=== PATIENT | male | born 1970 | race Caucasian/White ===

== ENCOUNTER 2016-09-05 15:38 | Inpatient (IN) | payer MEDICAID ==
[2016-09-05 15:50] VITALS: BMI 30.9
[2016-09-05] MEDS ORDERED: ONDANSETRON HCL 4 MG/2 ML VIAL IV ONE ×2 (15:54→15:58)
[2016-09-05] MEDS ORDERED: ASPIRIN (CHEWABLE) 81 MG TAB PO ONE (15:54)
[2016-09-05] MEDS ORDERED: ACETAMINOPHEN 325 MG/TAB TABLET PO ONE (15:57)
--- NOTE | 2016-09-05 15:57 | EDPRACDOC ---
- General Information Chief Complaint: Chest Pain Stated Complaint: RAPID HR WITH CP Information Source: Patient Mode of Arrival: Car Home Medications: Home Medications Alprazolam [Xanax] 1 mg PO BID 01/28/15 Hydrocodone/Acetaminophen [Hydrocodon-Acetaminophn 10-325] 1 tab PO TID Omeprazole 40 mg PO DAILY 09/05/16 Allergies/Adverse Reactions: Allergies Allergy/AdvReac Type Severity Reaction Status Date / Time Penicillins Allergy Severe Hives* Verified 09/05/16 15:40 diphenhydramine HCl Allergy Unknown UNKNOWN Verified 09/05/16 15:40 [From Benadryl] - History of Present Illness Onset: one hour ago HPI: PT REPORTS HR INCREASED FROM 52 TO 112 WITHIN AN HOUR. BP ELEVATED 230/130 TODAY, USUALLY SYSTOLIC TRIPLE DIGITS. HEADACHE SEVERE, NAUSEA. ABOUT AN HOUR AGO HAD CHEST PAIN THAT DEVELOPED. STRESS TEST WITHIN THE PAST YEAR. 3 YEARS AGO HEART CATH. NO H/O WA. ED Past Medical History - History Reviewed Yes Nurses notes reviewed and agree except as marked - Patient Medical History Neurological History: Reports: Cerebrovascular Accident (several TIA) Cardiac History: Reports: Hypertension Psychological History: Reports: Anxiety. Denies: Depression Systemic History: Denies: Cancer Additional Past Medical History: CHRONIC BACK PAIN - Family Medical History Reports: Cancer, Stroke, Cardiac Disorders. Denies: Hypertension, Diabetes - Social Medical History Smoking Status: Never smoker EDM Review of Systems - Review of Systems ROS Negative Except as Marked: Yes All systems reviewed and were negative except as marked - Physical Exam Constitutional: Alert (Awake), No apparent distress Oriented to: Time, Person, Place Last recorded Vital Signs: Last Vital Signs Temp 98.4 F 09/05/16 15:40 Pulse 108 09/05/16 15:40 Resp 20 09/05/16 15:40 BP 174/123 H 09/05/16 15:40 Pulse Ox 99 09/05/16 15:40 Oxygen Pulse Oxygen Saturation 99 O2 Device Room Air Oxygen Flow Rate Fraction of Inspired Oxygen ( FIO2) - HEENT Head: Normal ( normocephalic) Eye Exam: Normal (PERRL, EOMI, Sclera white) Oropharynx: Normal (Pharynx:Moist without exudate,Gums-no swelling) Nose: No Symptoms Reported (septum midline) Neck: Normal (FROM, trachea at midline) - Respiratory/Cardiovascular Respiratory: Normal - CTA (BBS clear to auscultation without adventitious sounds ) Cardiovascular: Normal (RRR without murmur, gallop or rub) - GI Auscultation: Normal (NABS) Palpation: Normal (Soft,No rebound or guarding, non distended) Tenderness: Non tender Deleon's Sign: Negative - Musculoskeletal Back: Normal (Non-Tender) Extremities: Normal (Normal tone, Pulses 2+ No cyanosis or edema, FROM) - Integumentary Skin: Normal, Warm, Dry Lymphatics: Normal (no adenopathy) - Neurologic Memory Impaired: Normal Motor Function: Normal (Normal tone, Pulses 2+ No cyanosis or edema, FROM) Cranial Nerve: Normal (CN II-X11 intact sensation, strength 5/5) Cerebellar: Normal Mood Description: Normal Perception: Normal - Action ASA given in the ED: Yes - Results 09/05/16 15:45 09/05/16 15:45 - EKG EKG #1 EKG Time: 15:42 -: Yes EKG interpreted by me Rate: bpm: 92 Couch: Normal Rhythm: NSR ST: Lat, Ischemia Comments: ABNORMAL EKG ; Comparison: 07/24/15 (NEW LATEAL CHANGES) - Departure Yes I personally saw and evaluated the patient. Disposition: Admit IP To This Hospital Condition: Stable Final Diagnosis: Hypertensive urgency, EKG abnormalities Chest pain Qualifiers: Chest pain type: unspecified Qualified Code(s): R07.9 - Chest pain, unspecified Headache Qualifiers: Headache type: unspecified Headache chronicity pattern: acute headache Decision to Admit Time: 18:11 Decision to admit date: 09/05/16 Decision to admit: from ED - Physician Consulted Hospitalist Time Called: 18:11 Provider Called: Mateus Sinclair Time Lead Pharmacy Technician Returned Call: 18:11
[2016-09-05] MEDS ORDERED: LABETALOL 20 MG/4 ML SYRINGE IV ONE (15:58)
[2016-09-05 16:04] LABS: AUTOMATED BASOPHIL 0.6 % (0-2); AUTOMATED EOSINOPHIL 0.4 % (0-5); AUTOMATED LYMPH 15.7 % (17-44); AUTOMATED MONOCYTE 7.2 % (3-10); AUTOMATED NEUTROPHIL 76.1 % (45-76); MPV 8.6 fL (7.4-10.4)
[2016-09-05 16:17] LABS: BLOOD UREA NITROGEN 21 MG/DL (9-20); CALCIUM 10.4 MG/DL (8.4-10.2); CALCULATED OSMOLALITY 277 MOs/Kg (270-290); CHLORIDE 100 mEq/L (98-107); GLUCOSE 110 MG/DL (70-99); SODIUM LEVEL 142 mEq/L (137-146)
[2016-09-05 16:25] LABS: PARTIAL THROMB. TIME 24.6 SEC (22-35); PT-INR 1.1
--- NOTE | 2016-09-05 16:29 | DIRPT ---
CLINICAL DATA: Acute onset headache several hours ago. Hypertension. Previous TIA. EXAM: CT HEAD WITHOUT CONTRAST TECHNIQUE: Contiguous axial images were obtained from the base of the skull through the vertex without intravenous contrast. COMPARISON: 11/24/2015 FINDINGS: Brain: No evidence of acute infarction, hemorrhage, extra-axial collection, ventriculomegaly, or mass effect. Vascular: No hyperdense vessel or unexpected calcification. Skull: Negative for fracture or focal lesion. Sinuses/Orbits: No acute findings. Other: None. IMPRESSION: Negative noncontrast head CT. Electronically Signed By: Daryl Soto M.D. On: 09/05/2016 16:26
--- NOTE | 2016-09-05 16:58 | DIRPT ---
CLINICAL DATA: Chest pain, elevated blood pressure EXAM: CHEST 2 VIEW COMPARISON: 11/24/2015 FINDINGS: Cardiomediastinal silhouette is stable. No acute infiltrate or pleural effusion. No pulmonary edema. Bony thorax is unremarkable. IMPRESSION: No active cardiopulmonary disease. Electronically Signed By: Chuck Andrews M.D. On: 09/05/2016 16:56
[2016-09-05] MEDS ORDERED: MORPHINE 4 MG/ML INJECTION IV ONE (17:05)
[2016-09-05] MEDS ORDERED: METOCLOPRAMIDE 10 MG/2 ML VIAL IV ONE (17:05)
[2016-09-05] MEDS ORDERED: IBUPROFEN 600 MG TAB PO ONE (17:20)
[2016-09-05] MEDS ORDERED: Enoxaparin 1 mg per kg per dose SQ ONE (18:11)
[2016-09-05] MEDS ORDERED: NITROGLYCERINE 2 % OINTMENT PACK TOP ONE (18:12)
[2016-09-05] MEDS ORDERED: ENOXAPARIN SODIUM SQ ONE ×2 (18:30)
--- NOTE | 2016-09-05 19:13 | HISTPHYS ---
- Chief Complaint chest pain, headache - History of Present Illness PRIMARY CARE PROVIDER: Dr. Goodson SEQUENCING MACHINE OPERATOR: Dr. Colbert NEUROLOGIST: Dr. Sevilla and Tiffany Barton HPI: The patient is a 45 yo man with hypertension, hyperlipidemia, history of TIAs, who was sent by Dr. Goodson for pulse 112 and blood pressure 188/168, chest pain, and headaches. Regarding the chest pain: Onset: Intermittent but more frequent chest pain with exertion over several months. New worsening chest pain with one severe episode last week and also today. Duration: intermittent. Location: substernal. Radiation: to left shoulder. Character: Is a heaviness/pressure sensation. 7-8/10 at times. Feels like a "hit and miss engine" - like it is missing beats or going very fast. He rapidly went from 50 bpm to 112 bpm and was sitting on his couch the entire time. Alleviated by: Resting after exertion. Exacerbated by: Chest heaviness worsens with exertion. Associated Symptoms: Nausea with the chest pain. Diaphoresis. Has been waking up at night in a "pool of sweat". Shortness of breath. Palpitations. Elevated blood pressure. Treatments: none at home except usual medications. Regarding headaches: Onset: Has had headaches with worsening frequency over the year. Had a severe headache that started 2 days ago. Duration: intermittent. Usually happens when his blood pressure is high. Location: Frontal and bilateral. Includes both temples. Radiation: none. Character: 8/10. Pressure. Alleviated by: Lower blood pressure. Exacerbated by: Nothing. Associated Symptoms: Photophobia. Phonophobia. No local weakness or numbness. No confusion, slurred speech, or drooling. No dizziness. No visual changes. Treatments: none at home except usual medications. - Medical History Cardiac History: Reports: Hypertension, Cardiac Catheterization (Possibly 2 stents. [place].), Stress Test (2013 normal), Hypercholesterolemia, Other ( Murmur since childhood.) GI/ History: Reports: Gastroesophageal Reflux Musculoskeletal History: Reports: Arthritis (Chronic back pain.) Systemic History: Denies: Cancer Neurological History: Reports: Migraine, Other (Had episodes of memory problems , resolved.). Denies: Cerebrovascular Accident (several TIAs: temporary weakness and confusion.) Psychological History: Reports: Anxiety. Denies: Depression Had EGD and gall bladder testing approx 2012. Tried to do a sleep study in past but he could not get to sleep so it was not valid. ECHOCARDIOGRAM 2012: EF 60%. Trace mitral regurgitation. Pulmonary artery pressure 37 mmHg. - Surgical History Reports: Cardiac Catheterization (possibly 2 stents), Other (Tympanostomy tubes as a child) - Medictions/Allergies Allergies Penicillins Allergy (Severe, Verified 09/05/16 15:40) Hives* diphenhydramine HCl [From Benadryl] Allergy (Unknown, Verified 09/05/16 15:40) UNKNOWN Current Medication List: Reviewed Home Medications Alprazolam [Xanax] 1 mg PO BID 01/28/15 Hydrocodone/Acetaminophen [Hydrocodon-Acetaminophn 10-325] 1 tab PO TID Omeprazole 40 mg PO DAILY 09/05/16 - Family History Reports: Cancer, Stroke, Cardiac Disorders. Denies: Hypertension, Diabetes - Social History Lives: With Family Smoking Status: Light tobacco smoker (less than 5/day) (Quit cigarettes 2007. Smoked 2.5 to 3 ppd previously. Currently 1 cigar per month. 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 - Review of Systems GENERAL: No Fever, chills. Positive for diaphoresis. Positive for fatigue/ malaise. HEENT: No ear pain or discharge. No nasal discharge or bleeding. No throat pain or swelling. No eye pain or eye redness. RESPIRATORY: No cough, wheezing. Positive for shortness of breath. CARDIOVASCULAR: Has chest pain and palpitations. GI: Nausea. No new abdominal pain but has chronic intermittent pain. No vomiting , diarrhea, constipation, or bloody stool. NEUROLOGICAL: Headache. No focal weakness. INTEGUMENT: no rashes, itching, or lesions. LYMPHATIC SYSTEM: no lymph node swelling or pain. MUSCULOSKELETAL: no new pain or joint swelling. GENITOURINARY: No dysuria or hematuria. ENDOCRINE: No polyuria or polydipsia. HEME: No chronic anemia, bleeding, or easy bruising. - Physical Exam Vital Signs: Initial Vitals Temperature 98.4 F 09/05/16 15:40 Pulse Rate 108 09/05/16 15:40 Respiratory Rate 20 09/05/16 15:40 Blood Pressure 174/123 H 01/11/17 15:40 Pulse Oxygen Saturation 99 09/05/16 15:40 Vital Signs - 24 hr 09/05/16 09/05/16 09/05/16 15:40 15:57 16:26 Temperature 98.4 F Pulse Rate 108 104 76 Respiratory 20 20 20 Rate Blood Pressure 174/123 H 178/130 H 155/116 H Pulse Oxygen 99 96 94 Saturation 09/05/16 09/05/16 09/05/16 17:06 17:15 17:21 Temperature Pulse Rate 72 75 66 Respiratory 22 19 Rate Blood Pressure 194/106 H 159/100 158/112 H Pulse Oxygen 97 95 96 Saturation 09/05/16 18:16 Temperature Pulse Rate 68 Respiratory Rate Blood Pressure 131/97 Pulse Oxygen 95 Saturation Weight: 106.6 kg Height: 6 feet 1 inch BMI: 31 - Other Exam Other Exam Findings: GENERAL: Ill-appearing, well nourished, in acute distress. Worsening distress when the overhead light was turned on. HEENT: Normocephalic, atraumatic; pupils equal and round. Nares patent, without discharge or bleeding. No oropharyngeal lesions or erythema. Mucous membranes are dry. NECK: is supple, no masses, trachea midline. Large neck circumference. RESPIRATORY: Clear to auscultation bilaterally. Chest wall movements are symmetric. No use of accessory muscles to breathe. No wheezing, rales, rhonchi. CARDIOVASCULAR: Normal S1, S2. Murmur 2/6 systolic at the right upper sternal border. No rubs, or gallops. PMI non-displaced. Carotids: no carotid bruits. No bradycardia or tachycardia. DP pulses 2+ bilaterally. GI: soft, nontender, non-distended, normal active bowel sounds. No hepatosplenomegaly. INTEGUMENT: Clean, dry, and intact. No rashes. No lesions. MUSCULOSKELETAL: Moving all extremities. No cyanosis. No clubbing. Edema: none bilaterally. NEUROLOGICAL: Cranial nerves 2-12 grossly intact. Motor 5/5 throughout. Reflexes : 2+ bilaterally. Babinski: toes downgoing bilaterally. Intact Finger to nose. Sensory grossly intact to light touch. Intact rapid alternating movements bilaterally. No pronator drift. PSYCHIATRIC: Fully oriented. Normal and appropriate affect. LYMPHATIC: No cervical lymphadenopathy. No supraclavicular lymphadenopathy. - Lab Results Laboratory Results - last 24 hr 09/05/16 09/05/16 09/05/16 15:45 15:45 15:45 WBC 11.3 H RBC 5.98 Hgb 17.5 Hct 51.8 MCV 87 MCH 29.4 MCHC 33.9 RDW 13.8 Plt Count 241 MPV 8.6 Neut % (Auto) 76.1 H Lymph % (Auto) 15.7 L [place] % (Auto) 7.2 Eos % (Auto) 0.4 Baso % (Auto) 0.6 Absolute Neuts (auto) 8.59 H Absolute Lymphs (auto) 1.70 PT 11.2 INR 1.1 APTT 24.6 Sodium 142 Potassium 4.5 Chloride 100 Carbon Dioxide 28 Anion Gap 19 H BUN 21 H Creatinine 1.10 Estimated GFR (MDRD) > 60 Glucose 110 H Calculated Osmolality 277 Calcium 10.4 H Total Bilirubin 1.1 AST 26 ALT 38 Alkaline Phosphatase 73 Troponin I < 0.01 Luf-G-Ultpohogkty Pept 38 Total Protein 9.0 H Albumin 5.1 H Lipase 09/05/16 09/05/16 15:45 18:25 WBC RBC Hgb Hct MCV MCH MCHC RDW Plt Count MPV Neut % (Auto) Lymph % (Auto) [place] % (Auto) Eos % (Auto) Baso % (Auto) Absolute Neuts (auto) Absolute Lymphs (auto) PT INR APTT Sodium Potassium Chloride Carbon Dioxide Anion Gap BUN Creatinine Estimated GFR (MDRD) Glucose Calculated Osmolality Calcium Total Bilirubin AST ALT Alkaline Phosphatase Troponin I < 0.01 Xzq-Y-Ciqptbbzouw Pept Total Protein Albumin Lipase 40 - Diagnostic Findings EK bpm. Normal sinus rhythm. ST and T wave abnormality. Slight ST depression with T wave inversion in V5 and V6. ST depression in I. Flat T waves in V2. Reviewed EKG personally. Chest x-ray, viewed personally: EXAM: CHEST 2 VIEW COMPARISON: 11/24/2015 FINDINGS: Cardiomediastinal silhouette is stable. No acute infiltrate or pleural effusion. No pulmonary edema. Bony thorax is unremarkable. IMPRESSION: No active cardiopulmonary disease. Head CT: EXAM: CT HEAD WITHOUT CONTRAST TECHNIQUE: Contiguous axial images were obtained from the base of the skull through the vertex without intravenous contrast. COMPARISON: 11/24/2015 FINDINGS: Brain: No evidence of acute infarction, hemorrhage, extra-axial collection, ventriculomegaly, or mass effect. Vascular: No hyperdense vessel or unexpected calcification. Skull: Negative for fracture or focal lesion. Sinuses/Orbits: No acute findings. Other: None. IMPRESSION: Negative noncontrast head CT. - Assessment (1) Acute coronary syndrome I24.9 - ACUTE ISCHEMIC HEART DISEASE, UNSPECIFIED Acute Present on Admission: Yes ST depressions on EKG. Plan: Obtain cardiac enzymes x 3. Place patient on telemetry. Give patient oxygen, aspirin. Give nitroglycerin, and morphine as needed for chest pain. Give statin. Stress test has been ordered for the morning. Patient has been advised, if the stress test is negative, to follow up with the primary care provider for evaluation of other potential causes of the chest pain. Lovenox 1 milligram/kilogram q.12 hours Beta-cedric JUDY-inhibitor (2) Hypertensive urgency I16.0 - HYPERTENSIVE URGENCY Acute Present on Admission: Yes With associated chest pain and headache. Plan: Add beta cedric, JUDY inhibitor. Nitroglycerin. (3) Headache R51 - HEADACHE Acute Present on Admission: Yes Qualifiers: Headache type: unspecified Headache chronicity pattern: acute headache Concerning that it is related to his elevated blood pressure. Also has features of a migraine. Plan: Treat blood pressure. Outpatient follow up with neurology is already scheduled: suggested patient discuss restarting migraine prevention medication. IV pain medication as needed for now. (4) Tachycardia R00.0 - TACHYCARDIA, UNSPECIFIED Acute Present on Admission: Yes Frequent tachycardia with palpitations. Plan: Telemetry. - Plan Note to primary care physician: Patient has a large neck circumference and likely has obstructive sleep apnea. Recommend consideration for another attempt at a sleep study as an outpatient. Case Care Discussed with: Patient, Nursing Staff Total Time: 80min NIH Stroke Scale Initial Evaluation Level of Consciousness: Alert LOC- Question: Answers Both Correctly LOC Commands: Both Task Correctly Best Gaze: Normal Visual: No Visual Loss Facial Palsy: Normal Movement Motor Arm LEFT: No Drift Motor Arm RIGHT: No Drift Motor Leg LEFT: No Drift Motor Leg RIGHT: No Drift Limb Ataxia: Absent Sensory: Normal Best Language: No Aphasia Dysarthria: Normal Extinction and Inattention: No Abnormality (Neglect) Score: 0out of42
[2016-09-05] MEDS ORDERED: Vaccine Screening Complete SCH (20:00)
[2016-09-05] MEDS ORDERED: NITROGLYCERINE 0.4 MG TAB SL PRN (20:30)
[2016-09-05] MEDS ORDERED: MORPHINE 2 MG/ML INJECTION IV PRN (20:30)
[2016-09-05] MEDS: HYDROCODONE 10 MG/ACETAMIN 325 MG TAB PO SCH (20:47)
[2016-09-05] MEDS: ALPRAZOLAM 0.5 MG TAB PO SCH (20:48)
[2016-09-05] MEDS ORDERED: ATORVASTATIN 40 MG TAB PO SCH (21:00)
[2016-09-05] MEDS ORDERED: Aluminum;Magnesium;Simethicone 30 ML UDC PO PRN (22:06)
[2016-09-05] MEDS ORDERED: Docusate Sodium 100 MG CAP PO PRN (22:06)
[2016-09-05] MEDS ORDERED: ACETAMINOPHEN 325 MG SUPP PR PRN (22:06)
[2016-09-05] MEDS ORDERED: PROMETHAZINE 25 MG/ML VIAL IV PRN (22:06)
[2016-09-05] MEDS ORDERED: SENNA CONCENTRATE TAB PO PRN (22:06)
[2016-09-05] MEDS ORDERED: BISACODYL 5 MG TAB PO PRN (22:06)
[2016-09-05] MEDS ORDERED: ONDANSETRON HCL 4 MG/2 ML VIAL IV PRN (22:06)
[2016-09-05] MEDS ORDERED: BENZONATATE 100 MG PERLES PO PRN (22:06)
[2016-09-05] MEDS ORDERED: GUAIFEN 100 MG-DEXTROMETH 10 MG PER 5 ML PO PRN (22:06)
[2016-09-05] MEDS ORDERED: ACETAMINOPHEN 325 MG/TAB TABLET PO PRN (22:06)
[2016-09-05] MEDS ORDERED: SIMETHICONE 80 MG TAB PO PRN (22:06)
[2016-09-05] MEDS: LISINOPRIL 5 MG TAB PO SCH (22:14)
[2016-09-05] MEDS: CARVEDILOL 3.125 MG TAB PO SCH (22:14)
[2016-09-05] MEDS ORDERED: Pharmacy Order Set Alert SCH (23:00)
[2016-09-05] MEDS ORDERED: Enoxaparin 1 mg per kg per dose SQ SCH (23:45)
[2016-09-05] MEDS: TEMAZEPAM 15 MG CAP PO PRN (23:54)
[2016-09-06] MEDS: NITROGLYCERINE 2 % OINTMENT PACK TOP SCH ×3 (00:17→11:45)
[2016-09-06] MEDS: TEMAZEPAM 15 MG CAP PO PRN (00:55)
[2016-09-06] MEDS ORDERED: PANTOPRAZOLE 40 MG TAB PO SCH (06:00)
[2016-09-06] MEDS ORDERED: ENOXAPARIN 100 MG PFS SQ SCH (06:00)
[2016-09-06] MEDS: HYDROCODONE 10 MG/ACETAMIN 325 MG TAB PO SCH ×2 (06:25→13:40)
[2016-09-06] MEDS ORDERED: ASPIRIN (CHEWABLE) 81 MG TAB PO SCH (08:00)
[2016-09-06 08:07] LABS: MPV 8.2 fL (7.4-10.4)
[2016-09-06 08:23] LABS: CPK TOTAL WITH POSSIBLE MB 59 IU/L (55-170)
[2016-09-06 08:26] LABS: BLOOD UREA NITROGEN 22 MG/DL (9-20); CALCIUM 9.8 MG/DL (8.4-10.2); CALCULATED OSMOLALITY 278 MOs/Kg (270-290); CHLORIDE 103 mEq/L (98-107); GLUCOSE 91 MG/DL (70-99); SODIUM LEVEL 143 mEq/L (137-146)
[2016-09-06] MEDS ORDERED: AMLODIPINE 10 MG TAB PO SCH (09:00)
[2016-09-06] MEDS ORDERED: Non-Formulary Medication ITEM (Omeprazole [Omeprazole] 40 MG) PO SCH (09:00)
[2016-09-06] MEDS: CARVEDILOL 3.125 MG TAB PO SCH (11:44)
[2016-09-06] MEDS: LISINOPRIL 5 MG TAB PO SCH (11:44)
[2016-09-06] MEDS: ALPRAZOLAM 0.5 MG TAB PO SCH (11:44)
[2016-09-06] MEDS ORDERED: SESTAMIBI 8 MCI V IV ONE (12:02)
--- NOTE | 2016-09-06 15:08 | PCM.DCS92 ---
- Final/Secondary Discharge Diagnosis (1) Acute coronary syndrome Acute I24.9 - ACUTE ISCHEMIC HEART DISEASE, UNSPECIFIED Present on Admission: Yes Comment: ST depressions on EKG. Plan: Obtain cardiac enzymes x 3. Place patient on telemetry. Give patient oxygen, aspirin. Give nitroglycerin, and morphine as needed for chest pain. Give statin. Stress test has been ordered for the morning. Patient has been advised, if the stress test is negative, to follow up with the primary care provider for evaluation of other potential causes of the chest pain. Lovenox 1 milligram/kilogram q.12 hours Beta-cedric JUDY-inhibitor (2) Hypertensive urgency Acute I16.0 - HYPERTENSIVE URGENCY Present on Admission: Yes Comment: With associated chest pain and headache. Plan: Add beta cedric, JUDY inhibitor. Nitroglycerin. (3) Headache Acute R51 - HEADACHE Present on Admission: Yes unspecified acute headache Comment: Concerning that it is related to his elevated blood pressure. Also has features of a migraine. Plan: Treat blood pressure. Outpatient follow up with neurology is already scheduled: suggested patient discuss restarting migraine prevention medication. IV pain medication as needed for now. (4) Tachycardia Acute R00.0 - TACHYCARDIA, UNSPECIFIED Present on Admission: Yes Comment: Frequent tachycardia with palpitations. Plan: Telemetry. Discharge Disposition: Home Discharge Condition: Stable Cognitive Discharge Status: Unimpaired Fuctional Discharge Status: Independent New Prescriptions: Carvedilol [Coreg] 3.125 mg PO BID #60 tablet Pantoprazole Sodium [Protonix] 40 mg PO 0600 #30 tablet Lisinopril [Zestril] 5 mg PO DAILY #30 tablet Discharge Home Medication List Alprazolam [Xanax] 1 mg PO BID 01/28/15 [History Confirmed 09/05/16] Hydrocodone/Acetaminophen [Hydrocodon-Acetaminophn 10-325] 1 tab PO TID [History Confirmed 09/05/16] Amlodipine Besylate [Norvasc] 10 mg PO DAILY 09/05/16 [History Confirmed ] Carvedilol [Coreg] 3.125 mg PO BID #60 tablet 09/06/16 [Rx] Lisinopril [Zestril] 5 mg PO DAILY #30 tablet 09/06/16 [Rx] Pantoprazole Sodium [Protonix] 40 mg PO 0600 #30 tablet 09/06/16 [Rx] New Discharge Medications (Rx) Carvedilol [Coreg] 3.125 mg PO BID #60 tablet 09/06/16 [Rx] Lisinopril [Zestril] 5 mg PO DAILY #30 tablet 09/06/16 [Rx] Pantoprazole Sodium [Protonix] 40 mg PO 0600 #30 tablet 09/06/16 [Rx] O2 Device: Room Air Oxygen to be used after Discharge: Continuous Diet at Discharge: As Tolerated Activity: No Restrictions Call Office For: Worsening Symptoms, Fever over 101 F, Pain Uncontrolled By Meds Discontinue use of:: All Types of Tobacco - DC Summary Notes Hospital Course Note:: Discharge summary on patient named KYE MICHAEL admitted to [facility] on 09/05/16 by Mateus Sinclair MD. Date of discharge is []. The patient was admitted under observation and serial cardiac enzymes and EKGs were obtained. The patient ruled out for myocardial infarction by serial enzymes and EKGs. The patient then underwent a stress test. The stress test showed no evidence of reversible ischemia. The patient is stable for discharge home. Patient's blood pressure was elevated on admission carvedilol and lisinopril were added to his medication regimen and his blood pressure has improved nicely. Will discharge home on these new medications. Total Time: 45 minutes - Physical Exam Vital Signs: Last Vital Signs Temp 97.7 F 09/06/16 11:38 Pulse 68 09/06/16 14:12 Resp 18 09/06/16 08:04 BP 140/98 09/06/16 11:38 Pulse Ox 98 09/06/16 11:38 Oxygen Pulse Oxygen Saturation 98 O2 Device Room Air Oxygen Flow Rate Fraction of Inspired Oxygen ( FIO2) Constitutional: Alert (Awake), No apparent distress Oriented to: Time, Person, Place - HEENT Head: Normal ( normocephalic) Eye: Normal (PERRL, EOMI, Sclera white) Oropharynx: Normal (Pharynx:Moist without exudate,Gums-no swelling) Nose: No Symptoms Reported (septum midline) - Respiratory/Cardiovascular Respiratory: Normal - CTA (BBS clear to auscultation without adventitious sounds ) Cardiovascular: Normal (RRR without murmur, gallop or rub) - GI Auscultation: Normal (NABS) Palpation: Normal (Soft,No rebound or guarding, non distended) Tenderness: Non tender Deleon's Sign: Negative - Musculoskeletal Back: Normal (Non-Tender) Extremities: Normal (Normal tone, Pulses 2+ No cyanosis or edema, FROM) - Integumentary Skin: Normal, Warm, Dry Lymphatics: Normal (no adenopathy) - Neurologic Memory Impaired: Normal Cerebellar: Normal Mood Description: Normal Perception: Normal - Other Exam Other Exam Findings: Laboratory Results - last 24 hr 09/05/16 09/05/16 09/05/16 15:45 15:45 15:45 WBC 11.3 H RBC 5.98 Hgb 17.5 Hct 51.8 MCV 87 MCH 29.4 MCHC 33.9 RDW 13.8 Plt Count 241 MPV 8.6 Neut % (Auto) 76.1 H Lymph % (Auto) 15.7 L [place] % (Auto) 7.2 Eos % (Auto) 0.4 Baso % (Auto) 0.6 Absolute Neuts (auto) 8.59 H Absolute Lymphs (auto) 1.70 PT 11.2 INR 1.1 APTT 24.6 Sodium 142 Potassium 4.5 Chloride 100 Carbon Dioxide 28 Anion Gap 19 H BUN 21 H Creatinine 1.10 Estimated GFR (MDRD) > 60 Glucose 110 H Calculated Osmolality 277 Calcium 10.4 H Total Bilirubin 1.1 AST 26 ALT 38 Alkaline Phosphatase 73 Creatine Kinase Troponin I < 0.01 [id number]-Ypmvvylatqy Pept 38 Total Protein 9.0 H Albumin 5.1 H Triglycerides Cholesterol LDL Cholesterol, Calc VLDL Cholesterol, Calc HDL Cholesterol Cholesterol/HDL Ratio Lipase 09/05/16 09/05/16 09/05/16 15:45 18:25 21:45 WBC RBC Hgb Hct MCV MCH MCHC RDW Plt Count MPV Neut % (Auto) Lymph % (Auto) [place] % (Auto) Eos % (Auto) Baso % (Auto) Absolute Neuts (auto) Absolute Lymphs (auto) PT INR APTT Sodium Potassium Chloride Carbon Dioxide Anion Gap BUN Creatinine Estimated GFR (MDRD) Glucose Calculated Osmolality Calcium Total Bilirubin AST ALT Alkaline Phosphatase Creatine Kinase Troponin I < 0.01 < 0.01 [id number]-Xoxluwfsebf Pept Total Protein Albumin Triglycerides Cholesterol LDL Cholesterol, Calc VLDL Cholesterol, Calc HDL Cholesterol Cholesterol/HDL Ratio Lipase 40 09/06/16 09/06/16 09/06/16 07:45 07:45 07:45 WBC 7.0 RBC 5.32 Hgb 15.7 D Hct 46.3 MCV 87 MCH 29.4 MCHC 33.8 RDW 13.8 Plt Count 206 MPV 8.2 Neut % (Auto) Lymph % (Auto) [place] % (Auto) Eos % (Auto) Baso % (Auto) Absolute Neuts (auto) Absolute Lymphs (auto) PT INR APTT Sodium 143 Potassium 4.7 Chloride 103 Carbon Dioxide 30 Anion Gap 15 BUN 22 H Creatinine 1.10 Estimated GFR (MDRD) > 60 Glucose 91 Calculated Osmolality 278 Calcium 9.8 Total Bilirubin AST ALT Alkaline Phosphatase Creatine Kinase 59 Troponin I < 0.01 [id number]-Htbaxbbabfg Pept Total Protein Albumin Triglycerides 40 Cholesterol 130 LDL Cholesterol, Calc 76.0 VLDL Cholesterol, Calc 8.0 HDL Cholesterol 46.0 Cholesterol/HDL Ratio 2.8 Lipase
[2016-09-06 15:38] VITALS: BP 132/84; TEMP 98
[2016-09-06 16:30] VITALS: PULSE 88
--- NOTE | 2016-09-06 16:35 | CAPUCARD ---
EXERCISE STRESS CARDIOLITE IDENTIFICATION: A 45-year-old male. INDICATION: Chest pain. The patient's baseline EKG reveals sinus rhythm and nonspecific ST-T changes. Resting heart rate 62, blood pressure 142/100 millimeters of mercury. The patient exercised for 10 minutes on standard Vega protocol and achieved 87% predicted maximal heart rate with 11 METS of exercise. Test terminated because of dyspnea. No chest pain occurred. There were nondiagnostic EKG changes and no arrhythmias. Cardiolite images do not reveal any evidence of ischemia. Ejection fraction calculated to be 56%. Peak heart rate 151, blood pressure 184/100 millimeters of mercury. IMPRESSION: 1. Cardiolite images do not reveal any evidence of ischemia. 2. Excellent exercise capacity. 3. Normal ejection fraction. 4. No significant symptoms, EKG changes, or arrhythmias occurred. [id number]
--- NOTE | 2016-09-06 17:05 | CAPUEKG ---
[place], [place] Test Date: 2016-09-06 Pat Name: KYE MICHAEL Department: Room: 436 Gender: Male Shuttle Inspector: : Requested By: Order Number: Reading MD: Kleber Lancaster Measurements Intervals [place] Rate: 50 P: 32 FL: 154 QRS: 52 QRSD: 74 T: 96 QT: 420 QTc: 382 Interpretive Statements Sinus bradycardia Nonspecific ST and T wave abnormality diffusely Abnormal ECG Electronically Signed On 09-06-16 17:04:36 EST by Kleber Lancaster [id number] [id number]
== END 2016-09-06 17:15 | disposition home or self-care (01) | DRG 311 ==
LOC: ED 15:38 → PCU 18:23
PROVIDERS: ADMIT Internal Medicine; ATTEND Family Medicine
DX: I24.9 Acute ischemic heart disease, unspecified (principal); I10 Essential (primary) hypertension; I16.0 Hypertensive urgency; R51 Headache; R00.0 Tachycardia, unspecified; E78.5 Hyperlipidemia, unspecified; Z86.73 Personal history of transient ischemic attack (TIA), and cerebral infarction without residual deficits; E78.00 Pure hypercholesterolemia, unspecified; R01.1 Cardiac murmur, unspecified; K21.9 Gastro-esophageal reflux disease without esophagitis; M19.90 Unspecified osteoarthritis, unspecified site; F41.9 Anxiety disorder, unspecified; Z88.0 Allergy status to penicillin; Z88.8 Allergy status to other drugs, medicaments and biological substances; Z79.899 Other long term (current) drug therapy; F17.210 Nicotine dependence, cigarettes, uncomplicated
CPT/HCPCS: 36415; 70450; 71020; 78452; 80048; 80053; 80061; 82550; 83690; 83880; 84484; 85025; 85027; 85610; 85730; 93005; 93017; 96372; 96374; 96375; 99285; 99406; A9500; J1650; J2405; J2765; J3490